=== PATIENT | male | born 1975 | race African-American/Black ===

== ENCOUNTER 2017-05-22 03:32 | Emergency (ER) | payer OTHER ==
[~2017-05-22] VITALS: Ht 185.4 cm; Wt 96.2 kg
[2017-05-22 04:38] LABS: BASOPHIL % 0.4 % (0-2); PLATELET COUNT 244 x10^3mcL (130-400); RED CELL DISTRIBUTION WIDTH 13.9 % (11.5-14.5)
[2017-05-22 04:45] LABS: ALBUMIN 3.4 g/dL (3.4-5.0); BILIRUBIN TOTAL 0.4 mg/dL (0.20-1.00); CALCIUM 9.3 mg/dL (8.5-10.1); CARBON DIOXIDE 26.3 mmol/L (21-32); CREATININE SERUM 2.6 mg/dL (0.7-1.3); TOTAL PROTEIN, SERUM 6.2 g/dL (6.4-8.2)
[2017-05-22 07:46] VITALS: BP 143/95
== END 2017-05-22 07:46 | disposition short-term general hospital (02) ==
LOC: ED 03:32
PROVIDERS: Emergency Medicine
DX: K91.870 Postprocedural hematoma of a digestive system organ or structure following a digestive system procedure (principal); Z94.0 Kidney transplant status; I10 Essential (primary) hypertension; Z88.5 Allergy status to narcotic agent; Z88.8 Allergy status to other drugs, medicaments and biological substances
CPT/HCPCS: J1170; J2060; J2405; J3010; Q0092